=== PATIENT | male | born 1960 | race Caucasian/White ===

== ENCOUNTER → 2018-04-04 | Day surgery (SDC) | payer BC ==
[~2018-04-04] MED LIST: Lactated Ringers 1,000 ML IV SCH; Propofol 200 MG/20 ML SDV IV ONE
--- NOTE | 2018-04-04 13:34 | OR ---
DATE OF OPERATION: 04/04/2018 PREOPERATIVE DIAGNOSIS: FAMILY HISTORY OF COLON CANCER. POSTOPERATIVE DIAGNOSIS: FAMILY HISTORY OF COLON CANCER. SURGEON: Jonathan Akhtar MD PROCEDURE: FULL-LENGTH COLONOSCOPY WITH POLYP REMOVAL X2. ANESTHESIA: [employer] due to chronic alcohol use. COMPLICATIONS: None. SPECIMEN: Hyperplastic polyps x2, hepatic flexure. FINDINGS: 1. Full-length colonoscopy. 2. Mild sigmoid diverticulosis. 3. Two small hyperplastic polyps, hepatic flexure. RECOMMENDATIONS: Follow up colonoscopy in 5 years. INDICATIONS: Mr. Thayer has a family history of colon cancer. He is due for a routine colonoscopy. DESCRIPTION OF PROCEDURE: The patient was prepped and draped and placed in the left lateral decubitus position. A lubricated Olympus colonoscope was inserted and relatively easily advanced to the cecum. Direct visualization of the ileocecal valve and appendiceal orifice was accomplished. The bowel prep was adequate. Upon withdrawal of the scope, the cecum and ascending colon were benign. On the transverse side of the hepatic flexure, the patient had 2 small hyperplastic polyps, both removed with a forceps biopsy x2 in their entirety. The rest of the transverse and descending colon were benign. The patient does have a few scattered diverticula through the sigmoid area, very mild in severity. No acute inflammatory change. There were no other polyps, masses, ulcerations, or bleeding sites. No vascular abnormalities or signs of colitis. The rectal vault was unremarkable. Retroflexion of the scope in the rectum showed no anal lesions. Air was suctioned. Scope was removed without complication. ROSETTA/VISHAL /[id number]
== END ==
LOC: CC.SDS 12:13
PROVIDERS: ATTEND Family Medicine
DX: Z12.11 Encounter for screening for malignant neoplasm of colon (principal); D12.3 Benign neoplasm of transverse colon; K57.30 Diverticulosis of large intestine without perforation or abscess without bleeding; M19.90 Unspecified osteoarthritis, unspecified site; N40.1 Benign prostatic hyperplasia with lower urinary tract symptoms; R35.1 Nocturia; I10 Essential (primary) hypertension; E78.00 Pure hypercholesterolemia, unspecified; E55.9 Vitamin D deficiency, unspecified; B37.2 Candidiasis of skin and nail; Z79.82 Long term (current) use of aspirin; Z79.899 Other long term (current) drug therapy; Z80.0 Family history of malignant neoplasm of digestive organs
CPT/HCPCS: J2704; J7120

== ENCOUNTER 2024-10-09 07:39 | Day surgery (SDC) | payer MEDICARE, BC, OTHER ==
[2024-10-09] MEDS: Lactated Ringers 1,000 ML IV SCH (07:54)
[2024-10-09] MEDS ORDERED: Propofol 200 MG/20 ML SDV ONE (08:45)
[2024-10-09] MEDS ORDERED: Lidocaine 2% 20 ML MDV ONE (08:45)
[2024-10-09] MEDS ORDERED: Ketamine 200 MG/20 ML MDV ONE (08:45)
[2024-10-09] MEDS ORDERED: Midazolam 1 MG/ML 2 ML SDV ONE (08:45)
[2024-10-09] MEDS ORDERED: Flumazenil 0.1 MG/ML 5 ML MDV ONE (08:45)
[2024-10-09] MEDS ORDERED: fentaNYL 50 MCG/ML SDV ONE (08:45)
== END 2024-10-09 10:08 | disposition home or self-care (01) ==
LOC: CC.SDS 07:39
PROVIDERS: ATTEND Family Medicine
DX: K31.A0 Gastric intestinal metaplasia, unspecified (principal); K31.89 Other diseases of stomach and duodenum; K57.30 Diverticulosis of large intestine without perforation or abscess without bleeding
CPT/HCPCS: 87081; 88305; J2250; J2704; J3010; J3490; J7120

== ENCOUNTER 2025-03-21 14:12 | Emergency (ER) | payer MEDICARE, BC, OTHER ==
[2025-03-21] MEDS: Lidocaine 1% 5 ML VIAL INJECT ONE (14:32)
[2025-03-21] MEDS: Diphtheria,Pertussis(Acell),Tetanus Vaccine 0.5 ML Syringe IM ONE (14:36)
== END 2025-03-21 14:50 | disposition home or self-care (01) ==
LOC: CC.ED 14:12
DX: S41.112A Laceration without foreign body of left upper arm, initial encounter (principal); Z23 Encounter for immunization; I10 Essential (primary) hypertension; E78.00 Pure hypercholesterolemia, unspecified; Z79.899 Other long term (current) drug therapy; Z79.84 Long term (current) use of oral hypoglycemic drugs; Z90.49 Acquired absence of other specified parts of digestive tract; W26.8XXA Contact with other sharp object(s), not elsewhere classified, initial encounter
CPT/HCPCS: 12001; 90471; 90715; 99282-25; 99283; J2003